=== PATIENT | female | born 1980 | race Caucasian/White ===

== ENCOUNTER 2016-10-02 10:42 | Emergency (ER) | payer BC ==
--- NOTE | ~2016-10-02 | US134 ---
[facility] A Service of [facility] & [facility] RADIOLOGY TEXT RESULTS PATIENT: JERICA MONTANA LOCATION: SED : 80 UNIT #: [id number] AGE: [address]: Markie Avila MD SEX: F ORDER DR: [id number] [address] [address] [id number] E MR#: [id number] Acc #: [id number] NAME: JERICA MONTANA : 1980 SEX: F STUDY DATE/TIME: 10/02/2016 13:17 UNIT: SED ROOM: STUDY DESCRIPTION: US Transvaginal Attending Physician: Markie Avlia M.D. Ordering Physician: Markie Avila M.D. Primary Care Physician: Sukhdeep Huff D.O. MEDICAL IMAGING REPORT This report is preliminary unless electronic signature is present. EXAM Pelvic ultrasound 10/02 INDICATIONS Pelvic pain and bleeding for 4 days. Beta-HCG value of 352 today. TECHNIQUE Transvaginal imaging is performed of the pelvis in multiple planes. FINDINGS The uterus measures about 4.7 x 7 x 5.5 cm. The endometrial is abnormally thickened at 19 mm. No intrauterine is seen. Free fluid is present in the pelvis. The right ovary is normal and shows perfusion by Doppler. The left ovary also demonstrates perfusion. Hypervascular curvilinear structure is noted in the left adnexa which appears hypervascular by Doppler. It is of unknown etiology but could potentially reflect salpingitis. I do not clearly see a hydrosalpinx. IMPRESSION 1. Abnormally thickened endometrium is nonspecific. It measures 19 mm. No intrauterine is seen at this time. 2. Nonspecific free fluid in the pelvis. 3. Both ovaries show perfusion by Doppler. There is a 1.4 cm left ovarian cyst. 4. Curvilinear structure in the left adnexa which appears hypervascular. This is of unknown etiology but could potentially reflect salpingitis. No definite hydrosalpinx is seen. [employer] followup is recommended, especially in light of a positive but low beta-HCG value today. Dictated by... Sukhdeep Huff Jr., M.D. [facility] A Service of [facility] & [facility] RADIOLOGY TEXT RESULTS PATIENT: JERICA MONTANA LOCATION: SED : [birth year] UNIT #: [id number] AGE: [address]: Markie Avila MD SEX: F ORDER DR: THIS IS AN ELECTRONICALLY VERIFIED REPORT Sukhdeep Huff Jr., M.D. at 10/04/2016 7:22 AM DONAVAN/piter TD: 10/03/2016 08:29 JOB #: [id number] MEDICAL IMAGING REPORT Page 1 of 1
[~2016-10-02 10:42] MED LIST: ALBUTEROL17 GM INH; BENADRYL ALLERG25 M1 PO; CIPROFLOXACIN500 M1 PO; FAMOTIDINE PO; LORTAB 5-325 M1 EACH PO; NO MEDICATIONS; NYSTATIN5 ML PO; PREDNISONE PO; ZOFRAN ODT4 MG/UDTAB PO
[2016-10-02] MEDS ORDERED: SINGULAIR (10:51)
[2016-10-02] MEDS ORDERED: TRI-LO-SPRINTE1 EAC1 PO (11:48)
== END 2016-10-02 16:21 | disposition home or self-care (01) ==
LOC: SED 10:42
DX: O20.9 Hemorrhage in early pregnancy, unspecified (principal); O26.891 Other specified pregnancy related conditions, first trimester; R10.2 Pelvic and perineal pain; O21.9 Vomiting of pregnancy, unspecified; O99.341 Other mental disorders complicating pregnancy, first trimester; F41.9 Anxiety disorder, unspecified; O99.331 Smoking (tobacco) complicating pregnancy, first trimester; F17.210 Nicotine dependence, cigarettes, uncomplicated; Z3A.01 Less than 8 weeks gestation of pregnancy
CPT/HCPCS: 36415; 76830; 84702; 84703; 86900; 86901; 99284

== ENCOUNTER 2016-10-06 16:51 | Emergency (ER) | payer BC ==
[~2016-10-06 16:51] MED LIST changes: +SINGULAIR; +TRI-LO-SPRINTE1 EAC1 PO
[2016-10-06] MEDS ORDERED: NO MEDICATIONS (16:59)
[2016-10-10 16:43] LABS: CHLAMYDIA TRACH Not Detected (Not Detected); N GONOR Not Detected (Not Detected)
== END 2016-10-06 18:47 | disposition home or self-care (01) ==
LOC: SED 16:51
PROVIDERS: Emergency Medicine
DX: O20.0 Threatened abortion (principal); O99.330 Smoking (tobacco) complicating pregnancy, unspecified trimester; F17.200 Nicotine dependence, unspecified, uncomplicated
CPT/HCPCS: 36415; 84702; 87491; 87591; 87808; 87905; 99284